=== PATIENT | female | born 1960 | race Caucasian/White ===

== ENCOUNTER 2020-02-11 00:38 | Emergency (ER) | payer OTHER ==
[2020-02-11 01:25] LABS: ABSOLUTE BASOPHILS # (AUTO) 0.1 10^3/uL (0.0-0.2); ABSOLUTE EOSINOPHILS # (AUTO) 0.1 10^3/uL (0.0-0.6); ABSOLUTE LYMPHOCYTES (AUTO) 2.6 10^3/uL (0.5-4.7); ABSOLUTE MONOCYTES (AUTO) 0.6 10^3/uL (0.1-1.4); ABSOLUTE NEUT (AUTO) 11.1 10^3/uL (1.7-8.2); BASOPHILS % (AUTO) 0.6 % (0-2); HEMATOCRIT 42.7 % (36.0-47.0); HEMOGLOBIN 14.5 g/dL (12.0-15.5); LYMPHOCYTES % (AUTO) 17.6 % (13-45); MEAN CORPUSCULAR HEMOGLOBIN 30.2 pg (27.0-33.4); MEAN CORPUSCULAR HGB CONC 33.9 g/dL (32.0-36.0); MEAN CORPUSCULAR VOLUME 89 fl (80-97); MONOCYTES % (AUTO) 4.3 % (3-13); PLATELET COUNT 388 10^3/uL (150-450); RED BLOOD COUNT 4.79 10^6/uL (3.72-5.28); RED CELL DISTRIBUTION WIDTH 15.5 % (11.5-14.0); SEGMENTED NEUTROPHILS % (AUTO) 76.5 % (42-78); TOTAL CELLS COUNTED % (AUTO) 100 %; WHITE BLOOD COUNT 14.6 10^3/uL (4.0-10.5)
[2020-02-11] MEDS ORDERED: ONDANSETRON HCL INJ/PF 4 MG/2 ML SDV IV ONE ×2 (01:45→06:46)
[2020-02-11] MEDS ORDERED: HYDROMORPHONE HCL INJ/PF 2 MG/ML AMPULE IV ONE ×3 (01:45→16:42)
[2020-02-11 01:46] LABS: ALKALINE PHOSPHATASE 113 U/L (38-126); ANION GAP 11 (5-19); ASPARTATE AMINO TRANSFERASE 31 U/L (14-36); BILIRUBIN,DIRECT 0.2 mg/dL (0.0-0.4); BILIRUBIN,TOTAL 0.4 mg/dL (0.2-1.3); BLOOD UREA NITROGEN 12 mg/dL (7-20); CALCIUM 10.6 mg/dL (8.4-10.2); CARBON DIOXIDE 25 mmol/L (22-30); CHLORIDE 105 mmol/L (98-107); GLUCOSE 123 mg/dL (75-110); TOTAL PROTEIN 6.8 g/dL (6.3-8.2)
--- NOTE | 2020-02-11 01:50 | ER Document Report ---
ED GI/ - General Chief Complaint: Abdominal Pain Stated Complaint: POSSIBLE ALLERGIC REACTION TO MEDS Time Seen by Provider: 02/11/20 01:39 Primary Care Provider: AUDELIA RICHARDS [NO LOCAL MD] - Follow up as needed Notes: Patient is a 59-year-old female that comes emergency department for chief complaint of severe abdominal pain that started approximately 2130 tonight. She states that she has had generalized soreness, she had an appendectomy approximately 2 weeks ago at [facility], she states she had a wound infection complication in the left lower abdomen wound site, however she denies that this area is worsening. She states she had a fever with this a few days ago but this is resolved and has not returned. Patient was dry heaving after the pain started per . Patient also reports she had a previous aortic/femoral bypass graft and has a follow-up for vascular surgery consul tation scheduled for poor peripheral circulation. She is not on a blood thinner. - Related Data Allergies/Adverse Reactions: ibuprofen Adverse Reaction (Verified 02/11/20 00:51) Home Medications: HTN. HIGH LIPIDS. ASA Past Medical History - General Information source: Patient - Social History Smoking Status: Current Every Day Smoker Frequency of alcohol use: None Drug Abuse: None Lives with: Family Family History: Reviewed & Not Pertinent Patient has homicidal ideation: No - Past Medical History Cardiac Medical History: Reports: Hx Hypercholesterolemia, Hx Hypertension Past Surgical History: Reports: Hx Appendectomy - Immunizations Immunizations up to date: Yes Hx Diphtheria, Pertussis, Tetanus Vaccination: Yes Review of Systems - Review of Systems Constitutional: No symptoms reported EENT: No symptoms reported Cardiovascular: No symptoms reported Respiratory: No symptoms reported Gastrointestinal: See HPI Genitourinary: No symptoms reported Female Genitourinary: No symptoms reported Musculoskeletal: No symptoms reported Skin: No symptoms reported Hematologic/Lymphatic: No symptoms reported Neurological/Psychological: No symptoms reported Physical Exam - Vital signs Vitals: Temp Pulse Resp BP Pulse Ox 97.8 F 97 21 H 190/95 H 99 02/11/20 00:43 02/11/20 00:43 02/11/20 00:43 02/11/20 00:43 02/11/20 00:43 - Notes Notes: GENERAL: Patient is standing in the room, holding her abdomen, appears to be in severe distress HEAD: Normocephalic, atraumatic. EYES: Pupils equal, round, and reactive to light. Extraocular movements intact. ENT: Oral mucosa moist, tongue midline. Oropharynx unremarkable. Airway patent. Nares patent, sinuses non-tender, ear canals unremarkable, TM's intact. NECK: Full range of motion. Supple. Trachea midline. No lymphadenopathy. LUNGS: Clear to auscultation bilaterally, no wheezes, rales, or rhonchi. No respiratory distress. Non-tender chest wall. HEART: Regular rate and rhythm. No murmur ABDOMEN: Abdomen is somewhat distended, dressings in the lower abdomen especially on the left side although the areas appear unremarkable. Large midline scar. Diffusely very tender although difficult to examine because of patient tolerance and distress EXTREMITIES: Moves all 4 extremities spontaneously. No edema, normal radial and dorsalis pedis pulses bilaterally. No cyanosis. BACK: no cervical, thoracic, lumbar midline tenderness. No saddle anesthesia, normal distal neurovascular exam. Moves all extremities in full range of motion. NEUROLOGICAL: Alert and oriented x3. Normal speech. Cranial nerves II through XII grossly intact. Strength 5/5 in all extremities. PSYCH: Agitated SKIN: Warm, dry, normal turgor. No rashes or lesions noted. Course - Re-evaluation Re-evalutation: It is difficult to get a full history out of the patient at this time, she is restless, obviously in distress, has a very tender abdomen generally which also appears somewhat distended. She is very hypertensive. Patient placed on monitor, medicated, CAT scan will be performed immediately, I am concerned she has an acute surgical or vascular emergency. 02/11/20 After hydromorphone and Zofran patient is now calm, blood pressure in the 150s, she is able to get in the bed and she appears relaxed. Significant provement. CTA is pending. CBC shows leukocytosis with elevation of neutrophils but no bandemia, hemoglobin unremarkable. Chemistry nonspecific, lactic acid is not elevated. 02/11/20 CTA showing dilated small bowel, possible developing small bowel obstruction, near complete stenosis of the femoral branch of the bypass for her peripheral vascular disease on the right side. We did perform a Doppler and she does have small amount of blood flow in the right foot, there is not a significant temperature difference, she does not have pain in the right foot. No acute findings otherwise on CTA are noted. Specifically no perforation, dissection, abscess. We will place NG tube, consult for admission or transfer. I updated patient. 02/11/[address] Haynes, recommendation is to contact [facility] and discussed this with the surgical group because patient is 10 days postop. 02/11/20 03:[address] Charlie Cortez, surgeon on-call at [facility]. Patient is accepted in transfer, he does recommend we proceed with NG tube placement and IV fluids. I have discussed in detail with patient and significant other, they state understanding and agreement with plan. Pending room acceptance and transport. 02/11/20 06:50 Patient had a brief episode where she had bradycardia down to the 40s, however this resolved, I evaluate the patient, she did not have diaphoresis, chest pain, dizziness, or any new complaints. EKG unremarkable. - Vital Signs Vital signs: Temp Pulse Resp BP Pulse Ox 98.4 F 97 22 H 147/69 H 92 02/11/20 04:45 02/11/20 00:43 02/11/20 06:01 02/11/20 06:01 02/11/20 06:01 - Laboratory Result Diagrams: 02/11/20 01:15 02/11/20 01:15 Laboratory results interpreted by me: 02/11/20 02/11/20 02/11/20 01:15 01:15 04:20 WBC 14.6 H RDW 15.5 H Absolute Neuts (auto) 11.1 H Est GFR (MDRD) Non-Af 53 L Glucose 123 H Calcium 10.6 H Urine Protein >=500 H Urine Blood MODERATE H - EKG Interpretation by Me Additional EKG results interpreted by me: EKG shows sinus rhythm at a rate of 89, QTc 453, normal axis, no T wave inversions or ST segment changes in consecutive leads. Borderline Q waves infe riorly. Discharge - Discharge Clinical Impression: Postoperative pain, Small bowel obstruction Vomiting Qualifiers: Vomiting type: unspecified Vomiting Intractability: non-intractable Nausea presence: with nausea Qualified Code(s): R11.2 - Nausea with vomiting, unspecified Condition: Stable Disposition: [facility] Referrals: LOCALMD,NO [NO LOCAL MD] - Follow up as needed
--- NOTE | 2020-02-11 02:44 | RADIOLOGY REPORT (SQ) ---
CTA ABDOMEN AND PELVIS WITH INTRAVENOUS CONTRAST: 02/11/2020 1:38 AM CDT HISTORY: 59-year old with severe abdominal pain, hypertension. COMPARISON: None available TECHNIQUE: Axial contiguous images were obtained from the lung bases through the proximal femurs with intravenous contrast administered utilizing a CTA protocol. 3D reconstructed images through the aorta were also obtained and examined. This exam was performed according to our departmental dose-optimization program, which includes automated exposure control, adjustment of the mA and/or KV according to the patient's size and/or use of iterative reconstruction technique. MIP reconstructed sagittal and coronal images were also obtained. FINDINGS: No focal consolidative airspace opacities are seen. No discrete pleural effusions are seen. The cardiac silhouette is enlarged. The visualized hepatic parenchyma is diffusely low in attenuation. No focal enhancing lesion is seen. The gallbladder demonstrates no evidence of calcified gallstones. The pancreas is unremarkable. The bilateral adrenal glands appear unremarkable. Both kidneys demonstrate no evidence of hydronephrosis. Bilateral hypodense lesions within the kidneys may represent cysts. The urinary bladder is mildly distended, and appears grossly unremarkable. The uterus appears to be surgically absent. The stomach is not well distended. There is mild to moderate fluid distention of the small bowel which may reflect evidence of an ileus or developing obstruction. The portions of small bowel which appear to be tethered at the left anterior abdominal wall, best seen on image 114 of 187. This may be a transition point. The post surgical changes also seen near the umbilical region. No pericolonic inflammatory stranding is seen. There are post surgical changes seen at the base of the cecum, likely from prior appendectomy. There is no evidence of pneumoperitoneum. There is trace free fluid at the right lower region of the abdomen.. The aorta and IVC appear normal in size. There are postprocedural changes seen at the aorta with an aortic biiliac graft noted. The right common iliac through external iliac portion of the graft appears to be occluded. There are stents seen at the [place] common iliac arteries. The [place] right common and external iliac appear to be patent though small in size. There is a severe stenosis of the proximal right common iliac artery. The aorta is within normal limits for size without evidence of a dissection. The celiac and superior mesenteric arteries are widely patent. The inferior mesenteric arteries not well visualized. The bilateral renal arteries are also patent. The iliac through common femoral arteries appear patent No significantly enlarged lymph nodes are seen in the abdomen or pelvis. Review of the bone show no evidence of any suspicious lytic or blastic lesions. IMPRESSION: There are post surgical changes from recent appendectomy with trace free fluid at the right lower abdomen. There are changes of a renal aortic biiliac bypass. The right common to external iliac portion of the graft appears to be occluded. The [place] right common external iliac artery is small in size. The right common femoral artery is stenotic proximally. There is moderate distention of the small bowel with a likely transition point at the left anterior abdomen. This is concerning for evolving small bowel obstruction.
[2020-02-11] MEDS ORDERED: MIDAZOLAM 2 MG/2 ML INJ IV ONE (03:51)
[2020-02-11] MEDS: NORMAL SALINE 1000 ML 1,000 ML IV PRN ×2 (04:23→17:08)
--- NOTE | 2020-02-11 05:25 | RADIOLOGY REPORT (SQ) ---
EXAM DESCRIPTION: XR CHEST 1 VIEW COMPLETED DATE/TME: 02/11/2020 00:00 CLINICAL HISTORY: NG tube placement confirmation COMPARISON: None. FINDINGS: Single frontal radiograph view of the chest. Cardiomediastinal silhouette: Normal size and contour. Lungs: No consolidation, pneumothorax, or pleural effusion. Bones: No acute osseous abnormality. Upper abdomen: NG tube with tip in side-port in the stomach. Leads overlie the chest. IMPRESSION: 1. NG tube in appropriate position.
[2020-02-11 05:54] LABS: APPEARANCE,URINE CLEAR; BILIRUBIN,URINE NEGATIVE (NEGATIVE); COLOR,URINE YELLOW; GLUCOSE, URINE NEGATIVE (NEGATIVE); KETONES,URINE NEGATIVE (NEGATIVE); LEUKOCYTE ESTERASE,URINE NEGATIVE (NEGATIVE); NITRITE,URINE NEGATIVE (NEGATIVE); PROTEIN,URINE >=500 mg/dL (NEGATIVE); UROBILINOGEN,URINE NEGATIVE mg/dL (<2.0)
[2020-02-11 06:03] LABS: URINE SPECIFIC GRAVITY > 1.060
--- NOTE | 2020-02-11 07:09 | EKG REPORT ---
SEVERITY:- ABNORMAL ECG - SINUS RHYTHM PROBABLE INFERIOR INFARCT, AGE INDETERMINATE CONSIDER POSTERIOR WALL INVOLVEMENT : Confirmed by: Kian Johnson MD 11-Feb-2020 07:09:35
[2020-02-11] MEDS ORDERED: SULFAMETHOX/TRIMETH 800-160 MG/10 ML VIAL IV ONE (16:42)
--- NOTE | 2020-02-11 17:12 | ER Document Report ---
Doctor's Note Notes: 02/11/20 17:11 We have been working with Dr. Birmingham the attending in the ER on transferring the patient to [facility]. She is still in the emergency department. Was notified by nursing that patient had a pause with a heart rate dipped to 30. The pauses on the monitor appeared to last approximately 2 to 3 seconds. Yoandy israel was apparently symptomatic with this but was unable to define her symptoms. Currently she is in a sinus rhythm on the monitor with a ventricular rate of 80. She will be continue to monitor while awaiting transfer. None of the patient's medications would appear to contribute to a pause and there is no definitive history of this. Will obtain an EKG
--- NOTE | 2020-02-11 17:53 | ER Document Report ---
ED General - General Chief Complaint: Abdominal Pain Stated Complaint: POSSIBLE ALLERGIC REACTION TO MEDS Time Seen by Provider: 02/11/20 01:39 Primary Care Provider: AUDELIA RICHARDS [NO LOCAL MD] - Follow up as needed - Related Data Allergies/Adverse Reactions: ibuprofen Adverse Reaction (Verified 02/11/20 00:51) Home Medications: HTN. HIGH LIPIDS. ASA Past Medical History - General Information source: Patient - Social History Smoking Status: Current Every Day Smoker Frequency of alcohol use: None Drug Abuse: None Lives with: Family Family History: Reviewed & Not Pertinent Patient has homicidal ideation: No - Past Medical History Cardiac Medical History: Reports: Hx Hypercholesterolemia, Hx Hypertension GI Medical History: Reports: Hx Gastroesophageal Reflux Disease Past Surgical History: Reports: Hx Appendectomy - Immunizations Immunizations up to date: Yes Hx Diphtheria, Pertussis, Tetanus Vaccination: Yes Physical Exam - Vital signs Vitals: Temp Pulse Resp BP Pulse Ox 97.8 F 97 21 H 190/95 H 99 02/11/20 00:43 02/11/20 00:43 02/11/20 00:43 02/11/20 00:43 02/11/20 00:43 Course - Re-evaluation Re-evalutation: 02/11/20 17:51 Patient has been boarding in the ED all day today waiting for transfer for a bowel obstruction. I have spoken with the transfer center at least twice if not 3 times regarding her transfer and there is still a delay in beds. She has been stable although at about 530 I was told that she is been bradycardic. She is been feeling she is having pauses during which she becomes quite symptomatic between 2 and 4 seconds, with sinus arrest based on her monitor strip. She does take metoprolol but is been 36 hours since her last dose. She does get nauseous during the episode but does not have chest pain. She is seeing a local submarine operator for an echo but otherwise has no cardiac history. That said she has peripheral arterial disease and is at high risk for ACS. , Which on my read shows no ischemic change in sinus rhythm. I have discussed with Oral Middleton the possibility of a cardiology consult and a more rapid transfer. I placed the pacer pads on the patient. 02/11/20 18:[address] Lombardo and who agrees this is probably vagal. The NG tube is draining now also seems like it is in the right spot. She does not have much abdominal pain. They have asked me to repack her abdominal wound which I did Also discussed again with Dr. Cortez who accepted. I also called the windchill administrator on duty at [facility], who has obtained a bed for the patient on the fourth floor. Note: Critical care by Valencia, EKG interpretation #2 by Valencia - Vital Signs Vital signs: Temp Pulse Resp BP Pulse Ox 98.5 F 97 21 H 142/85 H 92 02/11/20 16:01 02/11/20 00:43 02/11/20 16:01 02/11/20 16:01 02/11/20 16:01 - Laboratory Result Diagrams: 02/11/20 17:50 02/11/20 17:50 Laboratory results interpreted by me: 02/11/20 02/11/20 02/11/20 01:15 01:15 04:20 WBC 14.6 H RDW 15.5 H Absolute Neuts (auto) 11.1 H Est GFR (MDRD) Non-Af 53 L Glucose 123 H Calcium 10.6 H Urine Protein >=500 H Urine Blood MODERATE H 02/11/20 17:50 WBC 11.3 H RDW 15.6 H Absolute Neuts (auto) Est GFR (MDRD) Non-Af Glucose Calcium Urine Protein Urine Blood - Diagnostic Test Radiology reviewed: Image reviewed, Reports reviewed - EKG Interpretation by Me EKG shows normal: Sinus rhythm Rate: Normal Rhythm: NSR When compared to previous EKG there are: No significant change Critical Care Note - Critical Care Note Total time excluding time spent on procedures (mins): 31 Comments: The above patient is critically ill. Not including procedures, but including direct re-evaluations, speaking with patient and/or consultants, interpreting results, and documenting, I spent the total amount of minute listed listed above on critical care time Discharge - Discharge Clinical Impression: Postoperative pain, Small bowel obstruction Vomiting Qualifiers: Vomiting type: unspecified Vomiting Intractability: non-intractable Nausea presence: with nausea Qualified Code(s): R11.2 - Nausea with vomiting, unspecified Condition: Stable Disposition: [facility] Referrals: LOCALMD,NO [NO LOCAL MD] - Follow up as needed
[2020-02-11 18:15] LABS: HEMOGLOBIN 12.9 g/dL (12.0-15.5); MEAN CORPUSCULAR HEMOGLOBIN 29.6 pg (27.0-33.4); MEAN CORPUSCULAR VOLUME 90 fl (80-97); PLATELET COUNT 362 10^3/uL (150-450); RED BLOOD COUNT 4.35 10^6/uL (3.72-5.28); RED CELL DISTRIBUTION WIDTH 15.6 % (11.5-14.0); WHITE BLOOD COUNT 11.3 10^3/uL (4.0-10.5)
--- NOTE | 2020-02-11 18:26 | EKG REPORT ---
SEVERITY:- ABNORMAL ECG - SINUS RHYTHM INFERIOR INFARCT, AGE INDETERMINATE : Confirmed by: Kian Johnson MD 11-Feb-2020 18:25:59
[2020-02-11 18:36] LABS: ANION GAP 6 (5-19); BLOOD UREA NITROGEN 10 mg/dL (7-20); CALCIUM 9.8 mg/dL (8.4-10.2); CARBON DIOXIDE 27 mmol/L (22-30); CHLORIDE 106 mmol/L (98-107); GLUCOSE 89 mg/dL (75-110); POTASSIUM 4.3 mmol/L (3.6-5.0)
[2020-02-11] MEDS ORDERED: FENTANYL CITRATE INJ/PF 100 MCG/2 ML AMPUL IV PRN (19:56)
[2020-02-11 21:15] VITALS: BP 120/61
--- NOTE | 2020-02-12 05:32 | ER Document Report ---
Doctor's Note Notes: 02/11/20 22:55 Patient turned over to me pending transport to [facility] for bowel obstruction postop. Crew arrived to transfer patient and patient was awake alert and oriented, comfortable, remains appropriate for transport.
== END 2020-02-11 23:50 | disposition short-term general hospital (02) ==
LOC: ER 00:38
DX: G89.18 Other acute postprocedural pain (principal); K56.609 Unspecified intestinal obstruction, unspecified as to partial versus complete obstruction; R10.9 Unspecified abdominal pain; R11.2 Nausea with vomiting, unspecified; F17.200 Nicotine dependence, unspecified, uncomplicated; E78.00 Pure hypercholesterolemia, unspecified; I10 Essential (primary) hypertension
CPT/HCPCS: 93005; 99291; 96361; 96375; 96365; 96366; 36415; 83605; 83690; 83735; 85025; 80053; 81001; 84484; 71045; 74174; 93010; J2250; J3010; J1170; J3490; J2405; J7030